=== PATIENT | female | born 1970 | race African-American/Black ===

== ENCOUNTER 2020-03-16 12:59 | Outpatient (REF) | payer MEDICAID, SELFPAY ==
[2020-03-17 17:45] LABS: COVID-19 RT-PCR Result Not Detected
== END 2020-03-16 13:19 ==
LOC: LBN 12:59
PROVIDERS: Visit Provider Nurse Practitioner Adult Health
DX: Z11.59 Encounter for screening for other viral diseases (principal)
CPT/HCPCS: U0003

== ENCOUNTER 2020-03-24 01:42 | Outpatient (REF) | payer MEDICAID, SELFPAY ==
[2020-03-25 16:15] LABS: SARS-CoV-2 RNA Not Detected (NotDetected); SARS-CoV-2 RNA Source Nasal/Nares
== END 2020-03-24 02:02 ==
LOC: LBN 01:42
PROVIDERS: Nurse Practitioner Adult Health; Visit Provider Family Medicine
DX: Z11.59 Encounter for screening for other viral diseases (principal)
CPT/HCPCS: U0003